=== PATIENT | female | born 1975 | race Caucasian/White ===

== ENCOUNTER 2018-04-25 15:26 | Observation (INO) ==
--- NOTE | 2018-04-25 15:49 | PDOC ---
Lower Extremity Injury HPI - General Chief Complaint: Lower Extremity Problem/Injury Stated Complaint: pain left calf to foot Date Seen by Provider: 04/25/18 Time Seen by Provider: 15:38 Exam Limitations: POSITIVE: No limitations Nurse's Notes Reviewed & Considered: Yes - History of Present Illness Initial Comments: This is a well-developed, well-nourished, 42-year-old female, complaining of left lower extremity pain and swelling. This patient has undergone an 85 pound weight gain since October 2017. She is status post weight loss surgery performed in April 2014 in [place]. She presently has lesions on her lower extremities that a been biopsied at the [facility] and I am unsure of the exact diagnosis although Waldenstrm's disease is a possibility. Patient presently has escalating pain, swelling, and pitting edema. She does have shortness of breath but no chest pain. She states she has diarrhea every day and her last emesis was approximately a week ago she denies any nausea at this time. She further denies any hematuria or dysuria. Patient presently lives out of a truck. Her is employed in the [email or web address] industry and they are moving from [email or web address] to [email or web address]. She was prescribed lisinopril and amlodipine by her physicians in [place] but has failed to fill that prescription. She has been unable to find her Celebrex for 4 days and now has increased pain. Blood pressure today is 178/110. Have you received a tetanus shot in the past 10 years?: Unknown Body Location Affected: REPORTS: Lower Extremity (L) Timing: REPORTS: Unknown Duration: Unknown Severity: Severe Quality: REPORTS: "Pain" Location at Time of Onset: REPORTS: Home Context of Injury: REPORTS: Other (Possible autoimmune disease versus Waldenstrm's) Location of Injury: REPORTS: Leg (L), Ankle (L) Modifying Factors: improves with: Movement, Nothing Relieves Associated Symptoms: DENIES: Unable to Bear Weight, Snapping, Popping Sensation , Became Dizzy, Fainted, Seizure, Other Any Prior Injuries Related to Current Complaint?: No - Patient Home Medications Home Medications: Home Medications Celecoxib [Celebrex] 200 mg PO DAILY 04/25/18 Apixaban [Eliquis] 10 mg PO BID #60 tab.ds.pk 04/26/18 Losartan/Hydrochlorothiazide [Hyzaar 50-12.5 Tablet] 1 ea PO DAILY #30 tab 04/26 Pantoprazole Sodium [Protonix] 40 mg PO AC BK #30 tab 04/26/18 Potassium Chloride [Klor-Con] 10 meq PO DAILY #30 tab 04/26/18 traMADol HCl [Ultram] 50 mg PO Q6H PRN #20 tab 04/26/18 Prednisone 80 mg PO DAILY 05/03/18 - Patient Allergies Allergies/Adverse Reactions: Allergies 3 Allergy/AdvReac Type Severity Reaction Status Date / Time codeine AdvReac VOMITING Verified 04/26/18 06:21 ROS - Limitations ROS Limitations: No Limitations Constitution: REPORTS: Denies Symptoms Cardiovascular: REPORTS: Denies Cardiac Symptoms Respiratory: REPORTS: Shortness Of Breath Neurological: REPORTS: Headache Gastrointestinal: REPORTS: Nausea, Diarrhea Endocrine: REPORTS: Denies Symptoms Musculoskeletal: REPORTS: Lower Extremity Swelling, Other (Lower extremity pain from they need to the foot on the left) Genitourinary: REPORTS: Denies Symptoms Eyes: REPORTS: Denies Symptoms ENT: REPORTS: Denies Symptoms Skin: REPORTS: Skin Lesions Lympathic: REPORTS: Denies Lympathic Symptoms Immunologic: POSITIVE: Denies Symptoms Psychiatric: POSITIVE: Denies Psych Symptoms Lower Ext Complaint Exam - General Appearance General Appearance: POSITIVE: Alert, Cooperative, No Acute Distress, No Evidence of Trauma - Extremities Lower Extremity: POSITIVE: Normal ROM, Normal Temperature, No Evidence of Ischemia, Swelling, Other (Open lesions on her left lower extremity and healing biopsies on her posterior left calf.) Lower Extremity Ligament: NEGATIVE: Pain on Anterior Drawer, Pain on Posterior Drawer, Laxity on Anterior Drawer, Laxity w/Posterior Drawer, Pain on Medial Stress, Pain on Lateral Stress, Laxity on Medial Stress, Laxity on Lateral Stress, Other Gait: POSITIVE: Limited by Pain Neurovascular/Tendon: POSITIVE: Sensation Normal, Motor Normal, No Vascular Compromise Skin: POSITIVE: Warm, Dry, Other (Open lesions on her lower extremity on the left with well circumscribed margins) - HEENT HEENT: POSITIVE: Head Inspection Nml, Eyes Inspection Nml, Ears Inspection Nml, Nose Inspection Nml, Oral/Dental Inspect. Nml, Pharynx Inspect. Nml, PERRL, EOMI - Neck / Back Neck/Back: POSITIVE: Normal Inspection, Non-Tender, Painless ROM - Respiratory / CVS Respiratory / CVS: POSITIVE: Chest Non Tender, No Ecchymosis, Breath Sounds Normal, No Respiratory Distress, Heart Sounds Normal, Regular Rate/Rhythm Peripheral Pulses: Radial (L): 4+ - Abdomen Abdomen: Soft: (All Quadrants), Normal Bowel Sounds: (All Quadrants), Denies Tenderness: (All Quadrants), No Splenomegaly: (All Quadrants), No Hepatomegaly: (All Quadrants), No Guarding: (All Quadrants), No Rebound: (All Quadrants), No Palpable Pulse: (All Quadrants), No Palpabale Mass: (All Quadrants), No Distention: (All Quadrants), No Rigidity: (All Quadrants) Procedures - Laceration/Wound Repair Did patient have a laceration repair: No Lower Ext Complaint Progress - Results Reviewed by me Xrays/CTs/US Reviewed by me: Yes Discussed with Radiologist: Yes Lab Results Reviewed by Me: Yes CBC and BMP: 04/26/18 04:35 04/26/18 04:35 Lab Results:: Laboratory Results 3 04/25/18 04/25/18 04/25/18 16:00 16:00 16:00 WBC 8.43 RBC 5.04 Hgb 17.4 H Hct 49.7 H MCV 98.6 MCH 34.5 H MCHC 35.0 RDW Std Deviation 51.4 H RDW Coeff of Curtis 14.3 Plt Count 170 MPV 10.1 Immature Gran % (Auto) 0.1 Neut % (Auto) 61.6 Lymph % (Auto) 28.8 Cobb % (Auto) 5.7 Eos % (Auto) 3.3 Baso % (Auto) 0.5 Immature Gran # (Auto) 0.01 Neut # (Auto) 5.19 Lymph # (Auto) 2.43 Cobb # (Auto) 0.48 Eos # (Auto) 0.28 Baso # (Auto) 0.04 WBC Morphology Comment Normal morphology Plt Morphology Comment Normal morphology RBC Morph Comment Normal morphology ESR 2 PT INR Sodium 140 Potassium 3.7 L Chloride 106 Carbon Dioxide 27 Anion Gap 7 BUN 10 Creatinine 0.6 Estimated GFR > 60 BUN/Creatinine Ratio 16.66 Glucose 86 Calculated Osmolality 287.0 Calcium 9.6 Magnesium 1.5 L Total Bilirubin 0.6 AST 102 H ALT 128 H Alkaline Phosphatase 104 C-Reactive Protein 1.8 H Total Protein 7.7 Albumin 4.2 Globulin 3.6 Albumin/Globulin Ratio 1.10 L TSH 2.30 Free T4 1.33 3 04/25/18 16:00 WBC RBC Hgb Hct MCV MCH MCHC RDW Std Deviation RDW Coeff of Curtis Plt Count MPV Immature Gran % (Auto) Neut % (Auto) Lymph % (Auto) Cobb % (Auto) Eos % (Auto) Baso % (Auto) Immature Gran # (Auto) Neut # (Auto) Lymph # (Auto) Cobb # (Auto) Eos # (Auto) Baso # (Auto) WBC Morphology Comment Plt Morphology Comment RBC Morph Comment ESR PT 9.9 INR 0.96 Sodium Potassium Chloride Carbon Dioxide Anion Gap BUN Creatinine Estimated GFR BUN/Creatinine Ratio Glucose Calculated Osmolality Calcium Magnesium Total Bilirubin AST ALT Alkaline Phosphatase C-Reactive Protein Total Protein Albumin Globulin Albumin/Globulin Ratio TSH Free T4 - Patient's Progress Pain Medication Addressed: POSITIVE: Yes Re-Examine Time:: 17:00 Status: POSITIVE: Improved MDM / ED Course: Patient was evaluated, an IV started, blood drawn and sent to the lab for studies, ultrasound of her left lower extremity and CT scan of her chest were obtained. Findings: CBC shows hemoconcentration with hemoglobin of 17.4 and hematocrit 49.7. PT and INR normal. CMP shows a potassium of 3.7, AST of 102, ALT of 128. CRP is elevated at 1.8. Magnesium is low at 1.5. Ultrasound of her left lower extremity shows DVT present. Assessment: #1 DVT left lower extremity. #2 hypomagnesemia. - Consult Consult (If Yes, Name of Consulting MD & Time Called): Yes (Dr. Mederos, 1655hrs. ) Consulting MD will see pt:: POSITIVE: [facility] Admit Counseled: POSITIVE: Patient, RE: Lab Results, RE: Radiology Results, RE: DX, RE : Need for F/U Patient Care Time - Estimated PCT Patient Care Time (In Minutes): 30 Vital Signs - VS Reviewed Vital Signs Reviewed: Yes Discharge Clinical Impression: DVT (deep venous thrombosis) Discharge Disposition: Admit to Inpatient Condition: Stable Date Decision to Admit to Inpatient: 04/25/18 Time Decision to Admit to Inpatient: 16:55
[2018-04-25] MEDS ORDERED: KETOROLAC 15 MG/1 ML VIAL IVP ONE (15:50)
[2018-04-25] MEDS ORDERED: Sodium Chloride 0.9% 1,000 ML PRIMARY IV ONE (15:50)
[2018-04-25] MEDS ORDERED: ONDANSETRON 4 MG/2 ML VIAL IVP ONE (15:50)
[2018-04-25] MEDS ORDERED: CloNIDine Tab 0.1 MG TABLET PO ONE (16:06)
[2018-04-25 16:23] LABS: BASOPHILS # (AUTO) 0.04 10*3/UL; BASOPHILS % (AUTO) 0.5 % (0-1); EOSINOPHILS # (AUTO) 0.28 10*3/UL; EOSINOPHILS % (AUTO) 3.3 % (0-8); Hematocrit [HCT] 49.7 % (37.0-47.0); Hemoglobin [HGB] 17.4 g/dL (12.0-16.0); LYMPHOCYTES # (AUTO) 2.43 10*3/uL; MEAN CORPUSCULAR HEMOGLOBIN 34.5 PG (27-31); MEAN CORPUSCULAR VOLUME 98.6 FL (81-99); MEAN PLATELET VOLUME 10.1 FL (7.4-12.2); MONOCYTES # (AUTO) 0.48 10*3/UL (0.3-0.8); MONOCYTES % (AUTO) 5.7 % (5-15); NEUTROPHILS # (AUTO) 5.19 10*3/UL; NEUTROPHILS % (AUTO) 61.6 % (50-80); RED BLOOD COUNT 5.04 10^6/uL (4.20-5.40)
[2018-04-25 16:25] LABS: PLATELET MORPHOLOGY COMMENT NORMAL MORPHOLOGY (NORM); RBC MORPHOLOGY COMMENT NORMAL MORPHOLOGY (NORM); WBC MORPHOLOGY COMMENT NORMAL MORPHOLOGY (NORM)
[2018-04-25 16:36] LABS: BLOOD UREA NITROGEN 10 mg/dL (7-22); BUN/CREATININE RATIO 16.66 (6-20); SERUM ALBUMIN 4.2 g/dL (3.5-4.8)
[2018-04-25] MEDS ORDERED: Magnesium Sulfate 2gm (Premix) 2 GM/50 ML BAG IV ONE (16:47)
[2018-04-25] MEDS ORDERED: ENOXAPARIN SODIUM 100 MG/1 ML SYRINGE SUBCUT ONE (16:47)
--- NOTE | 2018-04-25 16:54 | DI ---
US Up/Low Ext Veins U/L or Ltd,04/25/2018 3:50 PM: Clinical History:Swelling and pain of the left lower extremity. Previous Exam: None available. Findings: Multiple grayscale and color Doppler sonographic images are obtained through the deep veins of the le ft lower extremity. There is noncompressibility of the posterior tibial vein The common femoral vein, popliteal vein and superficial femoral vein are normal. There is normal respiratory variation. Augmentation was not performed. Impression: Deep venous thrombosis within the left posterior tibial vein.
[2018-04-25] MEDS ORDERED: MORPHINE SULFATE 4 MG/1 ML IVP ONE (16:57)
[2018-04-25 17:02] LABS: Erythrocyte Sediment Rate 2 MM/HR (0-20)
[2018-04-25] MEDS ORDERED: ACETAMINOPHEN 325 MG TABLET PO PRN (18:57)
[2018-04-25] MEDS ORDERED: CALCIUM CARBONATE 500 MG (TUMS) CHEWABLE TABLET PO PRN (18:57)
[2018-04-25] MEDS ORDERED: LIDOCAINE W/ SODIUM BICARB 0.5 ML SYR SUBD PRN (18:57)
[2018-04-25] MEDS ORDERED: DOCUSATE 100 MG CAPSULE PO PRN (18:57)
[2018-04-25] MEDS ORDERED: Potassium Chloride Tab 10 MEQ TAB PO ONE (19:01)
[2018-04-25] MEDS ORDERED: LOSARTAN/HYDROCHLOROTHIAZIDE 50 MG/12.5 MG TABLET PO ONE (19:02)
[2018-04-25] MEDS ORDERED: traMADol 50 MG TABLET PO PRN (19:04)
--- NOTE | 2018-04-25 19:07 | PDOC ---
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 Because of that the she came into the ER, an ultrasound of the leg showed DVT in the posterior tibial vein she was given Lovenox and was admitted. Also her blood pressure was elevated when she came in and she was given clonidine. 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 Then in 2010 she started to have symptoms again was intermittently on prednisone. This year since October she started to have pain in the legs and also intermittent rash in her legs and was put on prednisone by dermatology in [place]. She was referred also to dermatology at the [facility] they did biopsy recently. She said that the analysis internship called her today and she told her that she need to be on prednisone 80 mg a day. She did not get the prescription yet. She has history of hypertension the last time she took her blood pressure medication was Wednesday. There is no GI bleeding currently and no melena. She said in 2002 she did have some bleeding they did endoscopy but did not find a source of the bleeding. She did not need blood transfusion. Past Medical History Medical History: 1. Hypertension. 2. History of leukocytoclastic vasculitis 2002 where she was briefly on prednisone and Rapamune. Intermittently she's been having episodes of vasculitis and been on prednisone last time she was on prednisone with last February. Surgical History: 1. Gastric sleeve surgery in 2013. 2. History of left knee scopes. Pertinent Family History: History of hypertension Tobacco Use: Current Every Day Smoker In the Past 12 Months, Have Used or Abuse Any of the Following Substance: Other (please comment) (She was in [place] and had some marijuana) Alcohol Use: Other (She drinks she said because of her pain and sometimes she drinks every night. She didn't specify how much.) Medication / Allergies Home Medications: Home Medications 3 Medication Instructions Recorded Confirmed Type Amlodipine Besylate 10 mg PO DAILY 04/25/18 04/25/18 History Celecoxib [Celebrex] 200 mg PO DAILY 04/25/18 04/25/18 History Lisinopril 40 mg PO DAILY 04/25/18 04/25/18 History Allergies/Adverse Reactions: Allergies 3 Allergy/AdvReac Type Severity Reaction Status Date / Time codeine AdvReac VOMITING Verified 04/25/18 17:47 Review of Systems - Review of Systems All Systems: Reviewed & No Additional Complaints Except as Stated Exam - Vitals Vital Signs: Vital Signs Temperature 97.0 F Temperature Source Temporal Artery Scan Pulse Rate [Pulse Oximeter] 92 Respiratory Rate 18 Blood Pressure [Right Arm] 190/115 Blood Pressure [Left Arm] 177/111 Pulse Ox 93 Oxygen Delivery Method Room Air Height 5 ft 9.5 in Weight 277 lb 7 oz - General General Appearance: No Acute Distress, Cooperative, Obese - Head Head Exam: Normal Inspection, Atraumatic - Eye Eye Exam: POSITIVE: Normal Appearance - ENT ENT Exam: POSITIVE: Normal Exam - Neck Neck Exam: Normal Inspection - Respiratory Respiratory Exam: POSITIVE: Clear to Auscultation - Bilaterally - Cardiovascular Cardiovascular Exam: POSITIVE: RRR - GI/Abdominal GI/Abdominal Exam: POSITIVE: Normal Bowel Sounds, Non Tender, Non Distended, Soft, No Organomegaly - Rectal Rectal Exam: POSITIVE: Deferred - External Exam: POSITIVE: Deferred Exam: POSITIVE: Deferred - Extremities Additional Extremities Exam Details: She had some vasculitic rash in both legs noted - Neurological Neurological Exam: POSITIVE: Alert, Oriented x 3 - Psychiatric Psychiatric Exam: POSITIVE: Normal Affect Results - Labs CBC and BMP: 04/25/18 16:00 04/25/18 16:00 - Imaging Status: Report Reviewed by Me (US Deep venous thrombosis within the left posterior tibial vein. CT chest Limited examination without evidence of pulmonary embolism.) Assessment and Plan - Patient Problems (1) DVT (deep venous thrombosis) Current Visit: Yes Status: Acute Comment: This is below knee DVT but because of her symptoms I think will treat. She also seem to be immobile because of her vasculitis. I think for the time being will put her on Lovenox will speak with the resource management planner tomorrow to check with her insurance and see which medication they will cover. I will speak also with her analysis internship and see exactly what kind of tests she had and their thoughts about her vasculitis. Code(s): I82.409 - Acute embolism and thrombosis of unspecified deep veins of unspecified lower extremity (2) Vasculitis Current Visit: Yes Status: Acute Comment: Seem to be leukocytoclastic vasculitis. Will speak with her analysis internship tomorrow and see what they recommend about the prednisone. See their impression. Code(s): I77.6 - Arteritis, unspecified (3) Hypertension Current Visit: Yes Status: Acute Comment: Blood pressure is uncontrolled she thinks her current medications don' t work. Lisinorpil is giving her cough. Will put her on Hyzaar. Code(s): I10 - Essential (primary) hypertension (4) Abnormal LFTs Current Visit: Yes Status: Acute Comment: She said she was told her LFT are abnoraml before. Will repeat it tomorrow. May be fatty liver. Code(s): R94.5 - Abnormal results of liver function studies
[2018-04-25] MEDS: ENOXAPARIN SODIUM 120 MG/0.8 ML SYRINGE SUBCUT SCH ×2 (19:19→19:23)
--- NOTE | 2018-04-25 20:02 | DI ---
CT CTA Chest Non-Coronary O,04/25/2018 4:50 PM: Clinical History: Deep venous thrombosis. Previous Exam: None at this facility. Findings: Multiple helically acquired following the administration of 85 cc of Isovue 370. Images are limited d ue to poor bolus timing. There is no infiltrate or effusion. There is no evidence of pulmonary embolism on the visualized images. The upper abdomen is unremarkable except for diffuse fatty infiltration of liver. Degenerative changes of the spine are noted. Impression: Limited examination without evidence of pulmonary embolism.
[2018-04-26] MEDS: traMADol 50 MG TABLET PO PRN ×2 (00:22→07:25)
[2018-04-26] MEDS: ONDANSETRON 4 MG/2 ML VIAL IVP PRN ×2 (00:26→04:54)
[2018-04-26] MEDS: ENOXAPARIN SODIUM 120 MG/0.8 ML SYRINGE SUBCUT SCH (01:35)
[2018-04-26] MEDS ORDERED: MORPHINE SULFATE 2 MG/1 ML IVP PRN (04:40)
[2018-04-26] MEDS ORDERED: NICOTINE 21 MG /DAY PATCH TRANSDERM SCH ×2 (04:43→09:00)
[2018-04-26] MEDS ORDERED: ENOXAPARIN SODIUM 120 MG/0.8 ML SYRINGE SUBCUT SCH (05:00)
[2018-04-26 05:20] LABS: BASOPHILS # (AUTO) 0.04 10*3/UL; BASOPHILS % (AUTO) 0.6 % (0-1); EOSINOPHILS # (AUTO) 0.36 10*3/UL; EOSINOPHILS % (AUTO) 5.1 % (0-8); Hematocrit [HCT] 47.3 % (37.0-47.0); Hemoglobin [HGB] 16.3 g/dL (12.0-16.0); MEAN CORPUSCULAR HEMOGLOBIN 34.7 PG (27-31); MEAN CORPUSCULAR HGB CONC 34.5 g/dL (33-37); MEAN CORPUSCULAR VOLUME 100.6 FL (81-99); MEAN PLATELET VOLUME 10.3 FL (7.4-12.2); MONOCYTES # (AUTO) 0.37 10*3/UL (0.3-0.8); MONOCYTES % (AUTO) 5.2 % (5-15); NEUTROPHILS # (AUTO) 4.19 10*3/UL; NEUTROPHILS % (AUTO) 59.4 % (50-80)
[2018-04-26 05:31] LABS: BILIRUBIN,URINE SMALL (NEG); CLARITY,URINE CLEAR (CLEAR); COLOR,URINE YELLOW; GLUCOSE, URINE (UA) NEGATIVE (NEG); OCCULT BLOOD,URINE Trace-intact (NEG); PROTEIN,URINE NEGATIVE (NEG); UROBILINOGEN,URINE 0.2 mg/dL (0.2)
[2018-04-26 05:32] LABS: PLATELET MORPHOLOGY COMMENT NORMAL MORPHOLOGY (NORM); RBC MORPHOLOGY COMMENT NORMAL MORPHOLOGY (NORM); WBC MORPHOLOGY COMMENT NORMAL MORPHOLOGY (NORM)
[2018-04-26 05:35] VITALS: O2SAT 95
[2018-04-26 05:37] LABS: BLOOD UREA NITROGEN 10 mg/dL (7-22); BUN/CREATININE RATIO 14.28 (6-20); SERUM ALBUMIN 3.5 g/dL (3.5-4.8)
[2018-04-26 05:53] LABS: SQUAMOUS EPITHELIAL CELL,UR MODERATE; URINE SAMPLE TYPE CLEAN CATCH URINE
[2018-04-26] MEDS ORDERED: PANTOPRAZOLE 40 MG TABLET PO SCH (07:00)
[2018-04-26] MEDS ORDERED: MAGNESIUM OXIDE 400 MG TABLET PO SCH (07:00)
[2018-04-26] MEDS ORDERED: LOSARTAN/HYDROCHLOROTHIAZIDE 50 MG/12.5 MG TABLET PO SCH (07:00)
[2018-04-26 07:14] VITALS: BP 166/108; RESP 19; TEMP 97.1
[2018-04-26] MEDS ORDERED: Potassium Chloride Tab 10 MEQ TAB PO SCH (09:00)
[2018-04-26] MEDS ORDERED: Patch Removal PATCH TRANSDERM SCH (09:00)
--- NOTE | 2018-04-26 10:07 | DCSUMMARY ---
Hospitalization Summary Admit Date: 04/25/2018 Discharge Date: 04/26/18 Hospital Course: Discharge diagnoses 1. Left posterior tibial DVT 2. Controlled hypertension 3. History of vasculitis 4. 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 An ultrasound done in the ER showed DVT in the posterior tibial vein she was given Lovenox and was admitted. Also her blood pressure was elevated when she came in and was giving clonidine. 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 Then in 2010 she started to have symptoms again was intermittently on prednisone. This year since October she started to have pain in the legs and also intermittent rash was put on prednisone by dermatology in [place]. She was referred also to dermatology at [facility] biopsy was done recently. The public area supervisor called her on the day she was admitted to the hospital wrote a prescription for prednisone 80 mg a day. For her history of hypertension she was not taking her blood pressure medication for the last 3 days because she moved in here. There was no recent history of bleeding or blood transfusion in the past. Exam when I saw her was remarkable for evidence of vasculitis in the legs. Some swelling noted in the left leg. We put her on Lovenox. The next day I did speak with her public area supervisor who said that the biopsy did show vasculitis but not sure about the kind of vasculitis she wanted here to have more testing done to figure out the cause of it. She wanted to be on prednisone. She was okay with her being on anticoagulant. We did discharge her on oral anticoagulants will put her on eliquis 10 mg twice a day for a week and then 5 mg twice a day after that. I did put her also on Protonix. For her blood pressure we switched her to Hyzaar. I did tell her this is a starting dose need to be followed up with her primary to make sure that she is responding to the medication the dosage may need to be increased if her blood pressure remained high. Did write for some tramadol for pain in the leg. Did warn her about watching for bleeding if she developed bleeding then she needs to stop the anticoagulant and call primary or present to the ER. Though the DVT is below knee but because it is symptomatic and because of her relative immobility we elected to put her on anticoagulant. Discharge instruction Diet regular activity as started Medications Current Medication(s) 3 Medication Instructions Recorded Confirmed Type Celecoxib [Celebrex] 200 mg PO DAILY 04/25/18 04/25/18 History Apixaban [Eliquis] 10 mg PO BID #60 tab.ds.pk 04/26/18 Rx Losartan/Hydrochlorothiazide 1 ea PO DAILY #30 tab 04/26/18 Rx [Hyzaar 50-12.5 Tablet] Pantoprazole Sodium [Protonix] 40 mg PO AC BK #30 tab 04/26/18 Rx Potassium Chloride [Klor-Con] 10 meq PO DAILY #30 tab 04/26/18 Rx traMADol HCl [Ultram] 50 mg PO Q6H PRN #20 tab 04/26/18 Rx Follow-up with PCP in a week Condition at discharge stable for discharge Exam - Vitals Vital Signs: Vital Signs Temperature 97.1 F Temperature Source Temporal Artery Scan Pulse Rate [Apical] 64 Pulse Rate [Pulse Oximeter] 61 Pulse Rate 57 Respiratory Rate 19 Blood Pressure [Right Arm] 166/108 Blood Pressure [Left Arm] 177/111 Pulse Ox 95 Oxygen Delivery Method Room Air Height 5 ft 9.5 in Weight 277 lb - General General Appearance: No Acute Distress, Cooperative, Obese - Head Head Exam: Normal Inspection - Eye Eye Exam: POSITIVE: Normal Appearance - ENT ENT Exam: POSITIVE: Normal Exam - Neck Neck Exam: Normal Inspection - Respiratory Respiratory Exam: POSITIVE: Clear to Auscultation - Bilaterally - Cardiovascular Cardiovascular Exam: POSITIVE: RRR - GI/Abdominal GI/Abdominal Exam: POSITIVE: Normal Bowel Sounds, Non Tender, Non Distended, Soft, No Organomegaly - Rectal Rectal Exam: POSITIVE: Deferred - External Exam: POSITIVE: Deferred - Extremities Additional Extremities Exam Details: Vasculitis noted in both legs - Neurological Neurological Exam: POSITIVE: Alert, Oriented x 3, CN II-XII Intact, No Facial Droop, Speech Intact / Clear, Moves All Extremities Equally - Psychiatric Psychiatric Exam: POSITIVE: Normal Affect Patient Problems - Patient Problem List (1) DVT (deep venous thrombosis) Current Visit: Yes Status: Acute Code(s): I82.409 - Acute embolism and thrombosis of unspecified deep veins of unspecified lower extremity Category: Medical (2) Vasculitis Current Visit: Yes Status: Acute Code(s): I77.6 - Arteritis, unspecified Category: Medical (3) Hypertension Current Visit: Yes Status: Acute Code(s): I10 - Essential (primary) hypertension Category: Medical (4) Abnormal LFTs Current Visit: Yes Status: Acute Code(s): R94.5 - Abnormal results of liver function studies Category: Medical
[2018-04-27 12:25] LABS: HEP B CORE IGM ANTIBODY Negative (Negative); HEPATITIS B SURFACE AG Negative (Negative)
[2018-04-27 14:55] LABS: HEPATITIS A IGM Negative (Negative)
== END 2018-04-26 12:45 | disposition home or self-care (01) ==
LOC: ER 15:26 → MED/SURG 17:28 → INTOOBSV 17:28
PROVIDERS: ADMIT Internal Medicine; ATTEND Internal Medicine

== ENCOUNTER 2018-05-03 13:46 | Inpatient (IN) ==
[2018-05-03] MEDS ORDERED: ONDANSETRON 4 MG/2 ML VIAL IVP ONE ×3 (14:07→16:22)
[2018-05-03] MEDS ORDERED: Sodium Chloride 0.9% 1,000 ML PRIMARY IV ONE (14:07)
[2018-05-03] MEDS ORDERED: FAMOTIDINE 20 MG/2 ML VIAL IVP ONE (14:07)
[2018-05-03] MEDS ORDERED: HYDROmorphone 2 MG/1 ML IVP ONE ×3 (14:09→16:22)
[2018-05-03 14:16] LABS: BASOPHILS # (AUTO) 0.03 10*3/UL; BASOPHILS % (AUTO) 0.2 % (0-1); EOSINOPHILS # (AUTO) 0.03 10*3/UL; EOSINOPHILS % (AUTO) 0.2 % (0-8); Hemoglobin [HGB] 19.4 g/dL (12.0-16.0); LYMPHOCYTES # (AUTO) 2.48 10*3/uL; MEAN CORPUSCULAR HEMOGLOBIN 34.5 PG (27-31); MEAN CORPUSCULAR HGB CONC 35.9 g/dL (33-37); MEAN CORPUSCULAR VOLUME 95.9 FL (81-99); MEAN PLATELET VOLUME 9.9 FL (7.4-12.2); MONOCYTES # (AUTO) 1.14 10*3/UL (0.3-0.8); MONOCYTES % (AUTO) 6.1 % (5-15); NEUTROPHILS # (AUTO) 14.83 10*3/UL; NEUTROPHILS % (AUTO) 79.8 % (50-80); RED BLOOD COUNT 5.63 10^6/uL (4.20-5.40)
[2018-05-03 14:18] LABS: PLATELET MORPHOLOGY COMMENT NORMAL MORPHOLOGY (NORM); RBC MORPHOLOGY COMMENT NORMAL MORPHOLOGY (NORM); WBC MORPHOLOGY COMMENT NORMAL MORPHOLOGY (NORM)
[2018-05-03 14:22] LABS: BLOOD UREA NITROGEN 12 mg/dL (7-22)
[2018-05-03 14:39] LABS: LIPASE 8289 IU/L (23-300)
--- NOTE | 2018-05-03 15:33 | DI ---
CT Abdomen/Pelvis W Contrast,05/03/2018 2:08 PM: Clinical History: Abdominal pain Previous Exam: None at this facility. Findings: Multiple helically acquired CT images are obtained through the abdomen and pelvis following the intra venous administration of 85 cc of Isovue 300, and demonstrates clear lung bases. Diffuse fatty infiltration of liver is noted. The spleen is unremarkable. There is a large amount of peripancreatic fat stranding with surrounding peripancreatic fluid. Postsurgical changes are noted of the stomach consistent with prior surgery. The gallbladder is normal. The adrenals and kidneys are unremarkable. The appendix is normal. Anterior abdominal wall is unremarkable. There is some fluid within the deep pelvis. The uterus and o varies are unremarkable. The anterior abdominal wall and subcutaneous fat is unremarkable. Impression: Severe peripancreatic fat stranding and edema and fluid without an abscess or pseudocyst at this time . This is consistent with acute pancreatitis.
--- NOTE | 2018-05-03 15:48 | PDOC ---
Abdomen/Flank HPI - General Chief Complaint: Abdomen Pain Stated Complaint: abdominal pain Date Seen by Provider: 05/03/18 Time Seen by Provider: 14:00 Source: POSITIVE: Patient, Spouse Exam Limitations: POSITIVE: No limitations Nurse's Notes Reviewed & Considered: Yes - History of Present Illness Initial Comments: The patient is a 42-year-old female. 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 She states she also has some associated back pain. She states she's had 4-5 episodes of emesis prior to coming to the emergency room. No diarrhea. No known fevers. No melena, hematochezia, hematemesis, dysuria or hematuria. Patient has a gastric sleeve. She states she's had a uterine ablation. Patient was diagnosed with deep vein thrombosis to the left leg recently and is presently on Ahlquist, 5 mg twice daily. She states that she also has a history of a vasculitis. Patient is presently on prednisone 80 mg for this. Patient states that she drinks up to a half a pint of liquor daily. She last drank alcohol last night. Body Location Affected: REPORTS: Abdomen Timing: REPORTS: Constant, Getting Worse Duration: <24 hours Severity: Severe Quality: REPORTS: "Pain" Abdominal Pain Onset Location: REPORTS: RUQ, LUQ, Epigastric Abdominal Pain Radiation: REPORTS: Back Context: REPORTS: Other (Drinks alcohol daily) Modifying Factors: improves with: Vomiting Associated Symptoms: REPORTS: Nausea, Vomiting. DENIES: Denies symptoms, Back pain, Bloody Emesis, Chest pain, Coffee Grounds Emesis, Chills, Diaphoresis, Fever, Fatigue, Headache, Heartburn, Loss of Appetite, Rash, Shortness of breath , Swelling/mass in abdomen, Syncope, Testicular Pain, Weakness, Grossly Bloody Diarrhea, Constipation, Diarrhea, Dysuria, Incontinent Stool, Incontinent Urine , Mucous Diarrhea, Difficulty Walking, Dizziness, Light Headedness, Numbness, Other Similar Symptoms Previously: No Recent Care Received: REPORTS: Recently Seen, Treated by , Hospitalized ( Treated for DVT left leg recently) - Patient Home Medications Home Medications: Home Medications Celecoxib [Celebrex] 200 mg PO DAILY 04/25/18 Apixaban [Eliquis] 10 mg PO BID #60 tab.ds.pk 04/26/18 Losartan/Hydrochlorothiazide [Hyzaar 50-12.5 Tablet] 1 ea PO DAILY #30 tab 04/26 Pantoprazole Sodium [Protonix] 40 mg PO AC BK #30 tab 04/26/18 Potassium Chloride [Klor-Con] 10 meq PO DAILY #30 tab 04/26/18 traMADol HCl [Ultram] 50 mg PO Q6H PRN #20 tab 04/26/18 Prednisone 80 mg PO DAILY 05/03/18 - Patient Allergies Allergies/Adverse Reactions: Allergies 3 Allergy/AdvReac Type Severity Reaction Status Date / Time codeine AdvReac VOMITING Verified 05/03/18 14:03 Past Medical History - heen HEENT History: Denies History Cardiovascular History: Hypertension Respiratory History: Denies History Gastrointestinal History: Other (please comment) Additional Gastrointestinal History: vomiting Genitourinary History: Denies History Endocrine History: Denies History Musculoskeletal History: Arthritis, Rheumatoid Arthritis Prosthesis or Implant: No Neurological History: Denies History Blood Disorders: Other (please comment) Additional Blood Disorders History: Waldenstrom's, Vasculitis Psychiatric History: Denies History History of Sexually Transmitted Diseases: No Female Reproductive History: Ablation Obstetrical History: Denies History Cancer History: Denies History In Past Year Been Physically Harmed or Verbally Threatened: No History of MDRO: No History of Other Communicable Diseases: No Tobacco Use: Current Every Day Smoker In the Past 12 Months, Have Used or Abuse Any Substance: Other (please comment) Previous Surgical History: Yes Type / Date of Surgery: LEFT KNEE. GASTRIC SLEEVE. URTERINE ABLASION Significant Family History: No pertinent family hx Past Medical History Reviewed: Reviewed - No Changes ROS - Limitations ROS Limitations: No Limitations Constitution: REPORTS: Denies Symptoms Cardiovascular: REPORTS: Denies Cardiac Symptoms Respiratory: REPORTS: Denies Resp Symptoms Neurological: REPORTS: Denies Neuro Symptoms Gastrointestinal: REPORTS: Abdominal Pain, Nausea, Vomitting Endocrine: REPORTS: Denies Symptoms Musculoskeletal: REPORTS: Denies MS Symptoms Genitourinary: REPORTS: Denies Symptoms Eyes: REPORTS: Denies Symptoms ENT: REPORTS: Denies Symptoms Skin: REPORTS: Denies Skin Symptoms Lympathic: REPORTS: Denies Lympathic Symptoms Immunologic: POSITIVE: Denies Symptoms Psychiatric: POSITIVE: Denies Psych Symptoms Abdominal/Flank Pain PE - General Appearance General Appearance: POSITIVE: Alert, Cooperative, No Evidence of Trauma, Moderate Distress. NEGATIVE: No Acute Distress - HEENT HEENT: POSITIVE: Head Inspection Nml, Eyes Inspection Nml, Ears Inspection Nml, Nose Inspection Nml, Oral/Dental Inspect. Nml, Pharynx Inspect. Nml, PERRL, EOMI - Neck Neck: POSITIVE: Normal Inspection, No Apparent Injury - Respiratory Respiratory: POSITIVE: No Respiratory Distress, Breath Sounds Normal, Chest Non- Tender - Cardiovascular Cardiovascular: POSITIVE: Regular Rate and Rhythm, Heart Sounds Normal, Equal Pulses, Strong Pulses Peripheral Pulses: Radial (R): 2+, Radial (L): 2+ - Chest Chest: POSITIVE: Non Tender - Abdomen Abdomen: Soft: (LLQ), (RLQ), Denies Tenderness: (RLQ), (LLQ), No Splenomegaly: ( All Quadrants), No Hepatomegaly: (All Quadrants), No Guarding: (RUQ), (LUQ), No Rebound: (All Quadrants), No Palpable Pulse: (All Quadrants), No Palpabale Mass : (All Quadrants), No Distention: (All Quadrants), No Rigidity: (All Quadrants) , Tenderness Noted: (RUQ), (LUQ) Additional Abdominal Details: Abdominal examination shows bowel sounds to be present, but somewhat depressed. Patient has pain on palpation over the upper abdomen, especially over the epigastric area. No masses, organomegaly or rebound. Some guarding on palpation of the upper abdomen. - Back Back: POSITIVE: Normal Inspection. NEGATIVE: CVA Tenderness (R), CVA Tenderness (L) - Skin Skin: POSITIVE: Intact, Normal For Race, Warm, Dry, No Rash - Extremities Extremity: Non-Tender: (All Extremities), Normal ROM: (All Extremities), Normal Inspection: (All Extremities) - Neurological Neurological: POSITIVE: Affect Apporpriate, Oriented X3, environmental compliance inspector Normal As Tested, Motor Normal, Sensation Normal - Psychological Psychiatric: POSITIVE: Affect Appropriate, Mood Appropriate Images - Complete Complete: 1 - Pain on palpation Abdomen Progress - Results Reviewed by me Xrays/CTs/US Reviewed by me: Yes Discussed with Radiologist: Yes Radiology Findings: CT scan abdomen and pelvis with IV contrast shows pancreatitis with no radiographic evidence of abscess or pancreatic cysts. No gallstones seen on CT scan. Lab Results Reviewed by Me: Yes (amylase and lipase quite elevated) CBC and BMP: 05/03/18 14:12 05/03/18 14:12 Lab Results:: Laboratory Results 3 05/03/18 05/03/18 05/03/18 14:12 14:12 14:12 WBC 18.56 H RBC 5.63 H Hgb 19.4 H Hct 54.0 H MCV 95.9 MCH 34.5 H MCHC 35.9 RDW Std Deviation 48.4 RDW Coeff of Curtis 13.8 Plt Count 295 MPV 9.9 Immature Gran % (Auto) 0.3 Neut % (Auto) 79.8 Lymph % (Auto) 13.4 H[place]go % (Auto) 6.1 Eos % (Auto) 0.2 Baso % (Auto) 0.2 Immature Gran # (Auto) 0.05 Neut # (Auto) 14.83 Lymph # (Auto) 2.48 [place]go # (Auto) 1.14 H Eos # (Auto) 0.03 Baso # (Auto) 0.03 WBC Morphology Comment Normal morphology Plt Morphology Comment Normal morphology RBC Morph Comment Normal morphology Sodium 134 L Potassium 3.1 L Chloride 98 Carbon Dioxide 27 Anion Gap 9 BUN 12 Creatinine 0.6 Estimated GFR > 60 BUN/Creatinine Ratio 20.00 Glucose 123 H Calculated Osmolality 278.0 Calcium 9.3 Total Bilirubin 1.0 AST 85 H ALT 136 H Alkaline Phosphatase 104 Total Protein 7.6 Albumin 4.0 Globulin 3.6 Albumin/Globulin Ratio 1.10 L Amylase 790 H Lipase 8289 H* Serum HCG, Qual Negative Serum Alcohol 3 05/03/18 14:12 WBC RBC Hgb Hct MCV MCH MCHC RDW Std Deviation RDW Coeff of Curtis Plt Count MPV Immature Gran % (Auto) Neut % (Auto) Lymph % (Auto) [place] % (Auto) Eos % (Auto) Baso % (Auto) Immature Gran # (Auto) Neut # (Auto) Lymph # (Auto) [place] # (Auto) Eos # (Auto) Baso # (Auto) WBC Morphology Comment Plt Morphology Comment RBC Morph Comment Sodium Potassium Chloride Carbon Dioxide Anion Gap BUN Creatinine Estimated GFR BUN/Creatinine Ratio Glucose Calculated Osmolality Calcium Total Bilirubin AST ALT Alkaline Phosphatase Total Protein Albumin Globulin Albumin/Globulin Ratio Amylase Lipase Serum HCG, Qual Serum Alcohol < 10 - Patient's Progress Pain Medication Addressed: POSITIVE: Yes (Patient given a total of 3 mg of Dilaudid in ER for pain with partial relief of pain) School/Work Release Addressed: POSITIVE: Not Applicable Re-examine Time: 15:45 Re-Examine Comment: Results of laboratory and radiologic evaluation discussed with patient and . Patient advised that she has pancreatitis. Patient given somewhat over a liter of fluid in the emergency room as well as Dilaudid and Zofran IV. She states her pain is somewhat less. Case discussed with Dr. Perez, hospitalist, and patient admitted to him for further evaluation and treatment. Status: POSITIVE: Improved, Re-Examined - Consult Consult (If Yes, Name of Consulting MD & Time Called): Yes (Dr. Perez, [id number]) Consulting MD will see pt:: [place] [facility] [place] Counseled: POSITIVE: Patient, Family, RE: Lab Results, RE: Radiology Results, RE : DX, RE: Need for F/U Patient Care Time - Estimated PCT Patient Care Time (In Minutes): 60 Vital Signs - Recent Vital Signs Vital Signs: Vital Signs (Last 8 hours) Pulse Resp BP Pulse Ox 05/03/18 13:55 71 28 H 185/145 97 Temperature 97.5F - VS Reviewed Vital Signs Reviewed: Yes Discharge Clinical Impression: Pancreatitis Discharge Disposition: Admit to Inpatient Condition: Fair Follow Up With: NONE,NONE [Primary Care Provider] - Date Decision to Admit to Inpatient: 05/03/18 Time Decision to Admit to Inpatient: 15:30
[2018-05-03 15:54] LABS: BILIRUBIN,URINE NEGATIVE (NEG); CLARITY,URINE CLEAR (CLEAR); COLOR,URINE BROWN (Y); GLUCOSE, URINE (UA) NEGATIVE (NEG); OCCULT BLOOD,URINE Trace-intact (NEG); PROTEIN,URINE 30 mg/dl (NEG); UROBILINOGEN,URINE 0.2 EU/dL (0.2)
[2018-05-03 15:57] LABS: URINE SAMPLE TYPE CATH SPECIMEN
[2018-05-03 16:01] LABS: BACTERIA,URINE RARE; RENAL EPITHELIAL CELLS,URINE RARE; SQUAMOUS EPITHELIAL CELL,UR FEW
[2018-05-03] MEDS ORDERED: HYDROmorphone 2 MG/1 ML IVP PRN (16:52)
[2018-05-03] MEDS ORDERED: CALCIUM CARBONATE 500 MG (TUMS) CHEWABLE TABLET PO PRN (16:52)
[2018-05-03] MEDS ORDERED: LIDOCAINE W/ SODIUM BICARB 0.5 ML SYR SUBD PRN (16:52)
[2018-05-03] MEDS ORDERED: APIXABAN 10 MG PO SCH (16:52)
[2018-05-03] MEDS ORDERED: DOCUSATE 100 MG CAPSULE PO PRN (16:52)
[2018-05-03] MEDS ORDERED: CloNIDine Tab 0.1 MG TABLET PO ONE (17:16)
[2018-05-03] MEDS ORDERED: ENALAPRILAT DIHYDRATE 1.25 MG/1 ML VIAL IVP PRN (17:16)
[2018-05-03] MEDS: PANTOPRAZOLE IV 40 MG VIAL IVP SCH (17:28)
[2018-05-03] MEDS: methylPREDNISolone 40 MG/1 ML VIAL IVP SCH (17:28)
[2018-05-03] MEDS: HYDROmorphone 2 MG/1 ML IVP PRN ×2 (18:59→21:40)
[2018-05-03] MEDS: Apixaban 5 MG TABLET PO SCH (20:44)
[2018-05-03] MEDS ORDERED: NICOTINE 21 MG /DAY PATCH TRANSDERM SCH (20:45)
--- NOTE | 2018-05-03 20:54 | PDOC ---
HPI - History of Present Illness History of Present Illness: This very nice 42-year-old female who was just admitted that one week ago for lower extremity DVT now on oral anticoagulation. Early this morning she developed abdominal pain with some nausea and vomiting before being seen in the emergency room. Patient denies any bloody stools also has a history of vasculitis and is on 80 mg of prednisone a day she drinks half a pint of vodka and hard lemonade a day and her last drink was last night Past Medical History Medical History: 1. Hypertension. 2. History of leukocytoclastic vasculitis 2002 where she was briefly on prednisone and Rapamune. Intermittently she's been having episodes of vasculitis and been on prednisone last time she was on prednisone with last February. Surgical History: 1. Gastric sleeve surgery in 2013. 2. History of left knee scopes. Pertinent Family History: History of hypertension Tobacco Use: Current Every Day Smoker In the Past 12 Months, Have Used or Abuse Any of the Following Substance: Opiate Pain Medication, Other (please comment) Medication / Allergies Home Medications: Home Medications 3 Medication Instructions Recorded Confirmed Type Celecoxib [Celebrex] 200 mg PO DAILY 04/25/18 05/03/18 History Apixaban [Eliquis] 10 mg PO BID #60 tab.ds.pk 04/26/18 05/03/18 Rx Losartan/Hydrochlorothiazide 1 ea PO DAILY #30 tab 04/26/18 05/03/18 Rx [Hyzaar 50-12.5 Tablet] Pantoprazole Sodium [Protonix] 40 mg PO AC BK #30 tab 04/26/18 05/03/18 Rx Potassium Chloride [Klor-Con] 10 meq PO DAILY #30 tab 04/26/18 05/03/18 Rx traMADol HCl [Ultram] 50 mg PO Q6H PRN #20 tab 04/26/18 05/03/18 Rx Prednisone 80 mg PO DAILY 05/03/18 05/03/18 History Allergies/Adverse Reactions: Allergies 3 Allergy/AdvReac Type Severity Reaction Status Date / Time codeine AdvReac VOMITING Verified 05/03/18 14:03 Review of Systems - Review of Systems All Systems: Reviewed & No Additional Complaints Except as Stated - Respiratory Respiratory: DENIES: Negative System Review, Cough, Sputum, Dyspnea At Rest, Dyspnea with Exertion, Pleuritic Pain, Hemoptysis, Wheezing, Other, See HPI - Cardiovascular Cardiovascular: DENIES: Negative System Review, Chest Pain, Edema, Syncope, Palpitations, Orthopnea, Paroxysmal Nocturnal Dyspnea, Other, See HPI - Gastrointestinal Gastrointestinal / Abdominal: REPORTS: Nausea, Vomiting, Abdominal Pain Exam - Vitals Vital Signs: Vital Signs Temperature 97 F Temperature Source Temporal Artery Scan Pulse Rate [Pulse Oximeter 80 Right] Pulse Rate 55 Respiratory Rate 18 Blood Pressure [Left Arm] 204/132 Blood Pressure [Left Radial 185/145 Artery] Blood Pressure 194/161 Pulse Ox 94 Oxygen Flow Rate 2 Oxygen Delivery Method Room Air Height 5 ft 9 in Weight 280 lb - General General Appearance: No Acute Distress, Cooperative - Respiratory Respiratory Exam: POSITIVE: Clear to Auscultation - Bilaterally, Breathing Non Labored, Normal To Percussion, Normal to Percussion and Palpation - Cardiovascular Cardiovascular Exam: POSITIVE: RRR, No Murmur, No Clicks, No Gallops, No Rubs, PMI Non-Displaced - GI/Abdominal GI/Abdominal Exam: POSITIVE: Soft. NEGATIVE: Guarding, Rebound, Rigid - Extremities Extremities Exam: POSITIVE: No Clubbing Present, No Edema Present, No Cyanosis Present - Neurological Neurological Exam: POSITIVE: Alert, Oriented x 3, No Facial Droop Results - Labs CBC and BMP: 05/03/18 14:12 05/03/18 14:12 Assessment and Plan - Patient Problems (1) Pancreatitis Current Visit: Yes Status: Acute Comment: Nothing by mouth pain control patient has been requiring 3 mg hydromorphone to control her pain she is on IV fluids with potassium Code(s): K85.90 - Acute pancreatitis without necrosis or infection, unspecified - Assessment / Plan Additional Assessment/Plan Details: For her DVT continueelquis Vasculitis we will switch to IV steroids All other medical issues continue current medications Uncontrolled hypertension IV Vasotec
[2018-05-04] MEDS: HYDROmorphone 2 MG/1 ML IVP PRN ×7 (00:12→15:28)
[2018-05-04] MEDS: ONDANSETRON 4 MG/2 ML VIAL IVP PRN ×2 (02:37→09:33)
[2018-05-04] MEDS: methylPREDNISolone 40 MG/1 ML VIAL IVP SCH (04:45)
[2018-05-04 06:08] LABS: BUN/CREATININE RATIO 11.33 (6-20)
[2018-05-04] MEDS: PANTOPRAZOLE IV 40 MG VIAL IVP SCH (08:11)
[2018-05-04] MEDS: Apixaban 5 MG TABLET PO SCH (08:11)
[2018-05-04] MEDS ORDERED: Sodium Chloride 0.9% 1,000 ML IV SCH (08:45)
[2018-05-04 09:14] VITALS: RESP 18; O2SAT 95
--- NOTE | 2018-05-04 10:37 | PDOC(PROG) ---
Interval History: Patient states her pain is improving she has been using the narcotics for pain nevertheless. Objective : Data - Labs CBC and BMP: 05/03/18 14:12 05/04/18 04:55 Objective : Exam - General General Appearance: No Acute Distress, Cooperative - Respiratory Respiratory Exam: Clear to Auscultation - Bilaterally, Breathing Non Labored, Normal To Percussion, Normal to Percussion and Palpation - Cardiovascular Cardiovascular Exam: RRR, No Murmur, No Clicks, No Gallops, No Rubs, PMI Non- Displaced - GI/Abdominal GI/Abdominal Exam: Normal Bowel Sounds, Non Distended, Soft, No Masses, No Hepatomegaly, No Splenomegaly, No Organomegaly Additional GI/Abdominal Exam Details: Still some time the tenderness left lower quadrant pain - Extremities Extremities Exam: No Clubbing Present, No Edema Present, No Cyanosis Present - Neurological Neurological Exam: Alert Assessment and Plan - Patient Problems (1) Pancreatitis Current Visit: Yes Status: Acute Comment: Lipases continued to climb we'll order MR I of the abdomen rule out pseudocyst or infection Code(s): K85.90 - Acute pancreatitis without necrosis or infection, unspecified (2) Elevated serum creatinine Current Visit: Yes Status: Acute Comment: We'll reorder CMP make sure this is not a lab error Code(s): R79.89 - Other specified abnormal findings of blood chemistry
[2018-05-04 10:55] LABS: BUN/CREATININE RATIO 12.5 (6-20); SERUM ALBUMIN 3.6 g/dL (3.5-4.8)
[2018-05-04] MEDS ORDERED: LORazepam Inj(ETOH withdrawal) 2 MG/ML VIAL IVP PRN (11:03)
[2018-05-04 11:30] LABS: BASOPHILS # (AUTO) 0.03 10*3/UL; BASOPHILS % (AUTO) 0.1 % (0-1); EOSINOPHILS # (AUTO) 0.07 10*3/UL; EOSINOPHILS % (AUTO) 0.2 % (0-8); Hematocrit [HCT] 57.9 % (37.0-47.0); Hemoglobin [HGB] 19.8 g/dL (12.0-16.0); LYMPHOCYTES # (AUTO) 0.88 10*3/uL; MEAN CORPUSCULAR HEMOGLOBIN 34.5 PG (27-31); MEAN CORPUSCULAR HGB CONC 34.2 g/dL (33-37); MEAN CORPUSCULAR VOLUME 100.9 FL (81-99); MEAN PLATELET VOLUME 10.3 FL (7.4-12.2); MONOCYTES # (AUTO) 2.07 10*3/UL (0.3-0.8); MONOCYTES % (AUTO) 5.6 % (5-15); NEUTROPHILS # (AUTO) 33.96 10*3/UL; RED BLOOD COUNT 5.74 10^6/uL (4.20-5.40)
--- NOTE | 2018-05-04 11:48 | DI ---
MRI Abdomen WO Contrast,05/04/2018 10:34 AM: Clinical History: Severe pancreatitis Previous Exam: None at this facility. Findings: Multiplanar MR images are obtained through the abdomen ON MRCP protocol, and demonstrate a large amou nt of peripancreatic edema. The gallbladder is unremarkable. The common bile duct is normal without filling defect or truncation. Left and right hepatic ducts are normal. The pancreatic duct appears grossly normal. Impression: Large amount of peripancreatic fat stranding consistent with pancreatitis. Normal common bile duct without evidence of stone.
[2018-05-04 11:52] LABS: PLATELET MORPHOLOGY COMMENT NORMAL MORPHOLOGY (NORM); RBC MORPHOLOGY COMMENT NORMAL MORPHOLOGY (NORM); WBC MORPHOLOGY COMMENT NORMAL MORPHOLOGY (NORM)
[2018-05-04 11:54] VITALS: BP 144/89; TEMP 97.5
--- NOTE | 2018-05-04 13:40 | DCSUMMARY ---
Hospitalization Summary Hospital Course: Final Discharge Diagnosis: Diagnostic Data, Laboratory Data, and Procedures of Signifigance: Laboratory Results 05/03/18 05/03/18 05/03/18 Range/Units 14:12 14:12 14:12 WBC 18.56 H (4.8-10.8) 10^3/uL RBC 5.63 H (4.20-5.40) 10^6/uL Hgb 19.4 H (12.0-16.0) g/dL Hct 54.0 H (37.0-47.0) % MCV 95.9 (81-99) FL MCH 34.5 H (27-31) PG MCHC 35.9 (33-37) g/dL RDW Std Deviation 48.4 (39-50) fL RDW Coeff of Curtis 13.8 (11.5-14.5) % Plt Count 295 (140-350) 10*3/uL MPV 9.9 (7.4-12.2) FL Immature Gran % (Auto) 0.3 (0-5) % Neut % (Auto) 79.8 (50-80) % Lymph % (Auto) 13.4 (10-50) % [place] % (Auto) 6.1 (5-15) % Eos % (Auto) 0.2 (0-8) % Baso % (Auto) 0.2 (0-1) % Immature Gran # (Auto) 0.05 10*3/UL Neut # (Auto) 14.83 10*3/UL Lymph # (Auto) 2.48 10*3/uL [place] # (Auto) 1.14 H (0.3-0.8) 10*3/UL Eos # (Auto) 0.03 10*3/UL Baso # (Auto) 0.03 10*3/UL WBC Morphology Comment Normal morphology (NORM) Plt Morphology Comment Normal morphology (NORM) RBC Morph Comment Normal morphology (NORM) Sodium 134 L (135-145) meq/L Potassium 3.1 L (3.8-5.2) meq/L Chloride 98 (98-112) meq/L Carbon Dioxide 27 (23-33) meq/L Anion Gap 9 (5-20) BUN 12 (7-22) mg/dL Creatinine 0.6 (0.50-1.20) mg/dL Estimated GFR > 60 (>60 ml/min/1.73m(2)) BUN/Creatinine Ratio 20.00 (6-20) Glucose 123 H (78-110) mg/dL Calculated Osmolality 278.0 (267-292) mOsm/kg Calcium 9.3 (8.7-10.7) mg/dL Total Bilirubin 1.0 (0.3-1.2) mg/dL AST 85 H (8-39) IU/L ALT 136 H (9-52) IU/L Alkaline Phosphatase 104 (38-126) IU/L Total Protein 7.6 (6.1-8.0) g/dL Albumin 4.0 (3.5-4.8) g/dL Globulin 3.6 (2.50-4.10) g/dL Albumin/Globulin Ratio 1.10 L (1.3-2.0) mg/g Amylase 790 H (30-110) U/L Lipase 8289 H* (23-300) IU/L Serum HCG, Qual Negative Ur Collection Type Urine Color (Y) Urine Clarity (CLEAR) Urine pH (5.0-8.5) Ur Specific [place] (1.005-1.030) Urine Protein (NEG) mg/dl Urine Glucose (UA) (NEG) mg/dL Urine Ketones (NEG) Urine Occult Blood (NEG) Urine Nitrate (NEG) Urine Bilirubin (NEG) Urine Urobilinogen (0.2) EU/dL Ur Leukocyte Esterase (NEG) Urine RBC (NONE) /hpf Urine WBC (NONE) Ur Squamous Epith Cells (NONE) Ur Renal Epithelial Cell (NONE) Urine Crystals Urine Bacteria (NONE) Urine Casts (NONE) Urine Mucus (NONE) Urine Trichomonas (NONE) Urine Yeast (NONE) Ur Culture Indicated? Serum Alcohol (0-10) mg/dL 05/03/18 05/03/18 05/04/18 Range/Units 14:12 15:43 04:55 WBC (4.8-10.8) 10^3/uL RBC (4.20-5.40) 10^6/uL Hgb (12.0-16.0) g/dL Hct (37.0-47.0) % MCV (81-99) FL MCH (27-31) PG MCHC (33-37) g/dL RDW Std Deviation (39-50) fL RDW Coeff of [place] (11.5-14.5) % Plt Count (140-350) 10*3/uL MPV (7.4-12.2) FL Immature Gran % (Auto) (0-5) % Neut % (Auto) (50-80) % Lymph % (Auto) (10-50) % [place] % (Auto) (5-15) % Eos % (Auto) (0-8) % Baso % (Auto) (0-1) % Immature Gran # (Auto) 10*3/UL Neut # (Auto) 10*3/UL Lymph # (Auto) 10*3/uL [place] # (Auto) (0.3-0.8) 10*3/UL Eos # (Auto) 10*3/UL Baso # (Auto) 10*3/UL WBC Morphology Comment (NORM) Plt Morphology Comment (NORM) RBC Morph Comment (NORM) Sodium 136 (135-145) meq/L Potassium 5.1 D (3.8-5.2) meq/L Chloride 101 (98-112) meq/L Carbon Dioxide 25 (23-33) meq/L Anion Gap 10 (5-20) BUN 17 (7-22) mg/dL Creatinine 1.5 H (0.50-1.20) mg/dL Estimated GFR 38 (>60 ml/min/1.73m(2)) BUN/Creatinine Ratio 11.33 (6-20) Glucose 98 (78-110) mg/dL Calculated Osmolality 283.0 (267-292) mOsm/kg Calcium 8.2 L (8.7-10.7) mg/dL Total Bilirubin 0.9 (0.3-1.2) mg/dL AST 84 H (8-39) IU/L ALT 110 H (9-52) IU/L Alkaline Phosphatase 92 (38-126) IU/L Total Protein 7.6 (6.1-8.0) g/dL Albumin 4.0 (3.5-4.8) g/dL Globulin 3.6 (2.50-4.10) g/dL Albumin/Globulin Ratio 1.10 L (1.3-2.0) mg/g Amylase (30-110) U/L Lipase (23-300) IU/L Serum HCG, Qual Ur Collection Type Cath specimen Urine Color Brown A (Y) Urine Clarity Clear (CLEAR) Urine pH 7.0 (5.0-8.5) Ur Specific [place] 1.015 (1.005-1.030) Urine Protein 30 A (NEG) mg/dl Urine Glucose (UA) Negative (NEG) mg/dL Urine Ketones Negative (NEG) Urine Occult Blood Trace-intact H (NEG) Urine Nitrate Negative (NEG) Urine Bilirubin Negative (NEG) Urine Urobilinogen 0.2 (0.2) EU/dL Ur Leukocyte Esterase Negative (NEG) Urine RBC 1-3 (NONE) /hpf Urine WBC 1-3 (NONE) Ur Squamous Epith Cells Few (NONE) Ur Renal Epithelial Cell Rare (NONE) Urine Crystals None Urine Bacteria Rare (NONE) Urine Casts None (NONE) Urine Mucus Moderate (NONE) Urine Trichomonas None (NONE) Urine Yeast None (NONE) Ur Culture Indicated? Culture not set Serum Alcohol < 10 (0-10) mg/dL 05/04/18 05/04/18 05/04/18 Range/Units 05:00 06:00 08:30 WBC 37.27 H* (4.8-10.8) 10^3/uL RBC 5.74 H (4.20-5.40) 10^6/uL Hgb 19.8 H (12.0-16.0) g/dL Hct 57.9 H (37.0-47.0) % MCV 100.9 H (81-99) FL MCH 34.5 H (27-31) PG MCHC 34.2 (33-37) g/dL RDW Std Deviation 53.6 H (39-50) fL RDW Coeff of [place] 14.5 (11.5-14.5) % Plt Count 282 (140-350) 10*3/uL MPV 10.3 (7.4-12.2) FL Immature Gran % (Auto) 0.7 (0-5) % Neut % (Auto) 91.0 H (50-80) % Lymph % (Auto) 2.4 L (10-50) % [place] % (Auto) 5.6 (5-15) % Eos % (Auto) 0.2 (0-8) % Baso % (Auto) 0.1 (0-1) % Immature Gran # (Auto) 0.26 10*3/UL Neut # (Auto) 33.96 10*3/UL Lymph # (Auto) 0.88 10*3/uL [place] # (Auto) 2.07 H (0.3-0.8) 10*3/UL Eos # (Auto) 0.07 10*3/UL Baso # (Auto) 0.03 10*3/UL WBC Morphology Comment Normal morphology (NORM) Plt Morphology Comment Normal morphology (NORM) RBC Morph Comment Normal morphology (NORM) Sodium 136 (135-145) meq/L Potassium 5.3 H (3.8-5.2) meq/L Chloride 104 (98-112) meq/L Carbon Dioxide 23 (23-33) meq/L Anion Gap 9 (5-20) BUN 20 (7-22) mg/dL Creatinine 1.6 H (0.50-1.20) mg/dL Estimated GFR 35 (>60 ml/min/1.73m(2)) BUN/Creatinine Ratio 12.50 (6-20) Glucose 95 (78-110) mg/dL Calculated Osmolality 284.0 (267-292) mOsm/kg Calcium 8.0 L (8.7-10.7) mg/dL Total Bilirubin 0.9 (0.3-1.2) mg/dL AST 63 H (8-39) IU/L ALT 107 H (9-52) IU/L Alkaline Phosphatase 77 (38-126) IU/L Total Protein 6.8 (6.1-8.0) g/dL Albumin 3.6 (3.5-4.8) g/dL Globulin 3.2 (2.50-4.10) g/dL Albumin/Globulin Ratio 1.10 L (1.3-2.0) mg/g Amylase (30-110) U/L Lipase 9628 H* (23-300) IU/L Serum HCG, Qual Ur Collection Type Urine Color (Y) Urine Clarity (CLEAR) Urine pH (5.0-8.5) Ur Specific [place] (1.005-1.030) Urine Protein (NEG) mg/dl Urine Glucose (UA) (NEG) mg/dL Urine Ketones (NEG) Urine Occult Blood (NEG) Urine Nitrate (NEG) Urine Bilirubin (NEG) Urine Urobilinogen (0.2) EU/dL Ur Leukocyte Esterase (NEG) Urine RBC (NONE) /hpf Urine WBC (NONE) Ur Squamous Epith Cells (NONE) Ur Renal Epithelial Cell (NONE) Urine Crystals Urine Bacteria (NONE) Urine Casts (NONE) Urine Mucus (NONE) Urine Trichomonas (NONE) Urine Yeast (NONE) Ur Culture Indicated? Serum Alcohol (0-10) mg/dL History and Physical pertinent to Admission: This very nice 42-year-old female who was just admitted that one week ago for lower extremity DVT now on oral anticoagulation. Early this morning she developed abdominal pain with some nausea and vomiting before being seen in the emergency room. Patient denies any bloody stools also has a history of vasculitis and is on 80 mg of prednisone a day she drinks half a pint of vodka and hard lemonade a day and her last drink was last night Past Medical History Medical History: 1. Hypertension. 2. History of leukocytoclastic vasculitis 2002 where she was briefly on prednisone and Rapamune. Intermittently she's been having episodes of vasculitis and been on prednisone last time she was on prednisone with last February. Surgical History: 1. Gastric sleeve surgery in 2013. 2. History of left knee scopes. 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 Comes in after binge drinking usually 1 pint a day with alcoholic pancreatitis with lipase of 8000 and elevated white count of 17,000. Repeat labs today and lipase increased to 9600 and WBCs to 37,000 this can definitely be attributed to IV steroids. Also I repeated MRI of the pancreas which showed severe inflammation and edema no obstruction. Also creatinine now up to 1.6. At this point considering her severity and the [place] criteria around 4 patient needs a higher level of care with the nephrology and critical care considering the acuity of her her pancreatitis and possibly 15% chance of mortality. She was admitted one week ago with left lower extremity DVT and is now on oral anticoagulation consistent with a low course eliquis I discussed the case [facility] Dr[facility] N[facility] she sleeps accepted the patient in transfer in the stepdown medical floor On the date of discharge, the patient was examined: Gen.: [No acute distress, alert, nontoxic] Heart: [Regular rate and rhythm, no murmurs, clicks, gallops, or rubs] Lungs: [Clear to auscultation bilaterally, breathing is nonlabored] Abdomen/GI: [Normal tones on auscultation, soft, left upper quadrant and lower quadrant abdominal pain no guarding or rebound nondistended] Musculoskeletal/extremities: [No clubbing, cyanosis, or edema] Vitals reviewed and are listed below Vital Signs (24 hrs) Temp Pulse Pulse Resp BP BP BP 05/04/18 11:03 97.5 F 98 18 144/89 05/04/18 09:00 97.7 F 83 18 119/77 05/04/18 05:03 05/04/18 05:00 98.3 F 100 20 128/94 05/04/18 00:57 96.8 F 108 H 16 119/79 05/03/18 20:08 97 F 80 18 204/132 05/03/18 19:00 80 18 05/03/18 17:00 92.3 F L 55 L 53 L 22 194/161 218/124 05/03/18 15:52 92.3 F L 05/03/18 13:55 71 28 H 185/145 Pulse Ox 05/04/18 11:03 05/04/18 09:00 95 05/04/18 05:03 92 05/04/18 05:00 94 05/04/18 00:57 93 05/03/18 20:08 94 05/03/18 19:00 05/03/18 17:00 97 05/03/18 15:52 05/03/18 13:55 97 Assessment and Plan: 1. As per discharge assessments above 2. Disposition: [facility] 3. Condition on discharge, stable and improved. 4. Diet: regular diet 5. Activities: resume normal activities 6. Follow-Up: 1. [PCP] 2. 7. Medications at the Time of Discharge: Home Medications 3 Medication Instructions Recorded Confirmed Type Celecoxib [Celebrex] 200 mg PO DAILY 04/25/18 05/03/18 History Apixaban [Eliquis] 10 mg PO BID #60 tab.ds.pk 04/26/18 05/03/18 Rx Losartan/Hydrochlorothiazide 1 ea PO DAILY #30 tab 04/26/18 05/03/18 Rx [Hyzaar 50-12.5 Tablet] Pantoprazole Sodium [Protonix] 40 mg PO AC BK #30 tab 04/26/18 05/03/18 Rx Potassium Chloride [Klor-Con] 10 meq PO DAILY #30 tab 04/26/18 05/03/18 Rx traMADol HCl [Ultram] 50 mg PO Q6H PRN #20 tab 04/26/18 05/03/18 Rx Prednisone 80 mg PO DAILY 05/03/18 05/03/18 History 8. Time, care, counseling and coordination of care for this discharge is greater than 30 minutes. Exam - Vitals Vital Signs: Vital Signs Temperature 97.5 F Temperature Source Oral Pulse Rate [Pulse Oximeter 83 Right] Pulse Rate 98 Respiratory Rate 18 Blood Pressure [Left Arm] 119/77 Blood Pressure [Left Radial 128/94 Artery] Blood Pressure 144/89 Pulse Ox 95 Oxygen Flow Rate 2 Oxygen Delivery Method Mask-Simple Height 5 ft 9 in Weight 208 lb 7 oz Patient Problems - Patient Problem List (1) Pancreatitis Current Visit: Yes Status: Acute Code(s): K85.90 - Acute pancreatitis without necrosis or infection, unspecified Category: Medical (2) Elevated serum creatinine Current Visit: Yes Status: Acute Code(s): R79.89 - Other specified abnormal findings of blood chemistry Category: Medical
[2018-05-04] MEDS ORDERED: NICOTINE 21 MG /DAY PATCH TRANSDERM SCH (21:00)
== END 2018-05-04 16:13 | disposition short-term general hospital (02) | DRG 439 ==
LOC: ER 13:46 → MED/SURG 16:53
PROVIDERS: ADMIT Internal Medicine; ATTEND Internal Medicine